=== PATIENT | female | born 1970 | race Caucasian/White ===

== ENCOUNTER → 2017-01-19 | Outpatient (CLI) | payer BC ==
--- NOTE | 2017-01-20 12:10 | MAMMOGRAPHY REPORT ---
BILATERAL DIGITAL SCREENING MAMMOGRAM TOMOSYNTHESIS WITH CAD: 01/19/2017 CLINICAL HISTORY: Routine screening. Patient has no complaints. TECHNIQUE: Breast tomosynthesis in addition to standard 2D mammography was performed. Current study was also evaluated with a Computer Aided Detection (CAD) system. COMPARISON: Comparison is made to exam dated: 10/29/2009 mammogram - [facility]. BREAST COMPOSITION: The tissue of both breasts is heterogeneously dense, which may obscure small mas ses. FINDINGS: There are diffuse faint punctate microcalcifications scattered bilaterally. Multiple bilat eral circumscribed subcentimeter oval and round masses are scattered in the breasts, which is a typic ally benign mammographic pattern. No suspicious mass, architectural distortion or cluster of suspici ous microcalcifications is seen. IMPRESSION: ACR BI-RADS CATEGORY 1: NEGATIVE There is no mammographic evidence of malignancy. A 1 year screening mammogram is recommended. The pa tient will receive written notification of the results. Approximately 10% of breast cancers are not detected with mammography. A negative mammographic report should not delay biopsy if a clinically suggestive mass is present. Martha Anderson M.D. ay/:01/19/2017 15:47:10 Course Instructor: Teresa WINN(Felecia)(Diana), [facility] letter sent: Normal 1/2 BI-RADS Code: ACR BI-RADS Category 1: Negative
== END | disposition home or self-care (01) ==
LOC: C.MAMM 12:06
PROVIDERS: ATTEND Obstetrics & Gynecology
DX: Z12.31 Encounter for screening mammogram for malignant neoplasm of breast (principal)

== ENCOUNTER 2017-05-13 09:08 | Inpatient (IN) | payer BC ==
--- NOTE | 2017-04-26 10:19 | HISTORY & PHYSICAL EXAMINATION ---
DATE OF ADMISSION: 05/13/2017 CHIEF COMPLAINT: Heavy vaginal bleeding, pelvic and lower back pain. HISTORY OF PRESENT ILLNESS: The patient is a 46-year-old 1, para 1. She has had D&C diagnostic lap and a in 2004. She has had heavy vaginal bleeding and pelvic pain for over 1 year, has been getting progressively worse. She is having her period about once a month, they last for up to 10 days, soaking a pad an hour for several hours. She has to miss work about 2 or 3 days each cycle because she is bleeding so heavy. Recently had an ultrasound which showed three 5 cm fibroids and she is presently being scheduled for a myomectomy with preservation of the uterus and tubes. She has also been told that occasionally due to heavy bleeding, she might end up with a hysterectomy. PAST MEDICAL HISTORY: She has a girl 12 years old in good health. ALLERGIES: No known drug allergies. SURGICAL HISTORY: She has had a D&C. She has had a . She has got a history of occasional migraine. SOCIAL HISTORY: No smoking. No excessive alcohol intake. Works for [employer]. FAMILY HISTORY: Mom is in her 70s. Her father at age 26. She has 1 sister in good health. REVIEW OF SYSTEMS: She has occasional migraines. No symptoms of frequent or severe bladder infections. PHYSICAL EXAMINATION: GENERAL: Well-developed, well-nourished 46-year-old white female, alert, oriented x3 and cooperative, in no acute distress, appears her stated age. EYES: Conjunctivae are pink. Sclerae white. No evidence of jaundice. EARS: Normal light reflex bilaterally. NOSE: Normal mucosa. Septum is midline. There are no polyps. THROAT: No erythema or evidence of infection. Teeth are in good state of repair. HEAD: Normocephalic, normal distribution of hair. NECK: Supple. Trachea midline. Thyroid is not enlarged. There is no adenopathy appreciated. Both carotids are of good intensity. CHEST: Clear to auscultation and percussion. No wheezes, rales or rhonchi appreciated. HEART: Regular rhythm. S1 and S2 normal. BREASTS: Normal. ABDOMEN: Soft and nontender. There is a well-healed Pfannenstiel scar. PELVIC: An enlarged uterus to about 11-12 weeks' gestational size, irregular. MUSCULOSKELETAL: No calf tenderness. IMPRESSIONS OF THIS CASE: Status post dilation and curettage diagnostic lap, status post , and symptomatic uterine fibroids.
[2017-04-26 10:29] VITALS: BMI 32.0
--- NOTE | 2017-04-26 11:05 | PAT Medication Instructions ---
Service Date Apr 26, 2017. Current Home Medication List Acetaminophen (Tylenol), 650 MG PO PRN Escitalopram (Lexapro), 10 MG PO NOON Ibuprofen (Advil), 400 MG PO PRN Loratadine (Claritin), 10 MG PO PRN [Vitamin B12], 1 TAB PO DAILY [Vitamin D], 1 TAB PO DAILY Medication Instructions For Your Scheduled Surgery Escitalopram (Lexapro), 10 MG PO NOON (continue per surgeon) - Check with surgeon for instructions: Ibuprofen (Advil), 400 MG PO PRN - Hold the following medications the morning of surgery: Loratadine (Claritin), 10 MG PO PRN [Vitamin B12], 1 TAB PO DAILY [Vitamin D], 1 TAB PO DAILY - Take the following medications the morning of surgery with a sip of water: Acetaminophen (Tylenol), 650 MG PO PRN (okay to take up to 4 hours prior to surgery if needed) - Take the following medications as scheduled the night before surgery: Loratadine (Claritin), 10 MG PO PRN (if needed) Acetaminophen (Tylenol), 650 MG PO PRN (if needed) If you have any questions please call us at [phone] or [phone] or [phone]
[2017-04-26 11:42] LABS: BASO % 0.5 %; BASO ABS # 0.03 K/uL (0-0.2); COMPLETE YES; EOS % 3.1 %; HEMATOCRIT 38.9 % (37-47); IG% 0.9 %; LYMPH % 23.7 %; LYMPH ABS # 1.52 K/uL (1.2-3.4); MEAN CELL VOLUME 88.4 fL (80-100); MEAN CORPUSCULAR HEMOGLOBIN 29.3 pg (25-34); MEAN CORPUSCULAR HGB CONC 33.2 g/dl (32-36); MEAN PLATELET VOLUME 10.1 fL (7.4-10.4); NEUT % 62.8 %; PLATELET COUNT 305 K/uL (130-400); WHITE BLOOD COUNT 6.42 K/uL (4.8-10.8)
[2017-04-26 11:54] LABS: INR 0.9 (0.9-1.1)
[2017-04-26 13:48] LABS: BUN/CREATININE RATIO 25.5 (10-20); CALCIUM 8.8 mg/dl (8.5-10.1); CREATININE 0.83 mg/dl (0.60-1.20); POTASSIUM 4.3 mmol/L (3.5-5.1)
[~2017-05-13] VITALS: Ht 160 cm; Wt 82.1 kg
[2017-05-13] VITALS (10 sets, daily range): BP systolic 109–147; BP diastolic 77–98; PULSE 68–106; TEMP 36.5–37.1; O2SAT 95–98; Ht 160 cm; Wt 82.1 kg
[~2017-05-13 09:08] MED LIST: ACET-1311 PO; CEFOXITIN IV 2,000 MG in DEXTROSE 5% 50ML 50 ML IV SCH; CLR10 PO; ESCI10TA17 PO; IBUP-1050 PO; LACTATED RINGER'S 1000ML 1,000 ML IV SCH; VITAMIN B12 PO; VITAMIN D PO
[2017-05-13] MEDS ORDERED: FERR1TAB13 PO (09:41)
[2017-05-13] MEDS ORDERED: FENTANYL CITRATE INJ 50 MCG/1 ML 2 ML VIAL ONE ×3 (09:49→16:05)
[2017-05-13] MEDS ORDERED: MIDAZOLAM HCL 1 MG/ML 2ML VIAL ONE (09:49)
[2017-05-13] MEDS ORDERED: NURSING VERBAL MED ORDER ONE (10:00)
[2017-05-13] MEDS ORDERED: MORPHINE SULFATE PF 2MG/2ML SYR ONE (10:59)
[2017-05-13] MEDS ORDERED: BUPIVACAINE 0.25% 30 ML VIAL ONE (11:35)
[2017-05-13] MEDS ORDERED: HEPARIN SOD (PORCINE) 1000 UNIT/ML 10 ML VIAL ONE (11:44)
--- NOTE | 2017-05-13 11:45 | History & Physical Bridge Note ---
H&P Re-Evaluation Bridge Note: I have examined the patient, reviewed the History & Physical and in the interval since the performance of the History & Physical I have noted the following changes of clinical significance: No changes noted
[2017-05-13] MEDS ORDERED: NALOXONE HCL INJ 0.08 MG in SYRINGE 1.8 ML IV PRN (12:32)
[2017-05-13] MEDS ORDERED: SODIUM CHLORIDE 0.9% 1000ML 1,000 ML IV PRN (12:32)
[2017-05-13] MEDS ORDERED: NALOXONE HCL INJ 1 MG in SODIUM CHLORIDE 0.9% 1000ML 1,000 ML IV PRN ×4 (12:32)
[2017-05-13] MEDS ORDERED: LACTATED RINGER'S 1000ML 500 ML IV PRN (12:32)
[2017-05-13] MEDS ORDERED: NEOSTIGMINE METHYLSULFATE 5 MG/5 ML SYR ONE (12:36)
[2017-05-13] MEDS ORDERED: DEXAMETHASONE SOD INJ 4 MG/ML VIAL ONE (12:36)
[2017-05-13] MEDS ORDERED: SUCCINYLCHOLINE CHLORIDE 20 MG/ML 10 ML VIAL IV ONE (12:36)
[2017-05-13] MEDS ORDERED: PROPOFOL IV EMULSION 10 MG/ML 20 ML VIAL IV ONE (12:36)
[2017-05-13] MEDS ORDERED: ONDANSETRON INJ 2 MG/ML 2 ML VIAL ONE (12:36)
[2017-05-13] MEDS ORDERED: LIDOCAINE HCL 2% 2 ML VIAL (20MG/ML) ONE (12:36)
[2017-05-13] MEDS ORDERED: GLYCOPYRROLATE INJ 0.2 MG/ML VIAL ONE (12:36)
[2017-05-13] MEDS ORDERED: ROCURONIUM BROMIDE 10 MG/ML 5 ML VIAL IV ONE (12:36)
[2017-05-13] MEDS ORDERED: EpHEDrine SULFATE INJ 50 MG/ML AMP ONE (12:41)
[2017-05-13] MEDS ORDERED: EpHEDrine SULFATE INJ 50 MG/ML AMP IV PRN ×2 (12:45→16:00)
[2017-05-13] MEDS ORDERED: NALBUPHINE HCL INJ 10 MG/ML AMP IV PRN (12:45)
[2017-05-13] MEDS ORDERED: ONDANSETRON INJ 2 MG/ML 2 ML VIAL IV PRN ×2 (12:45→16:00)
[2017-05-13] MEDS ORDERED: MoRPHine SULFATE PF 1 MG/ML 10 ML AMP/VIAL EPI PRN (12:45)
[2017-05-13] MEDS ORDERED: NO NARCOTICS OR SEDATIVES SCH (12:45)
[2017-05-13] MEDS ORDERED: DiphenhydrAMINE HCL 50 MG/ML VIAL IV PRN (12:45)
[2017-05-13] MEDS ORDERED: NALOXONE HCL 0.4 MG/1 ML VIAL/CARP IV PRN (12:45)
[2017-05-13] MEDS ORDERED: PROMETHAZINE HCL INJ 25 MG in SODIUM CHLORIDE 0.9% 50ML 50 ML IV PRN (12:45)
[2017-05-13] MEDS ORDERED: LIDOCAINE/EPINEPHRINE 1% 20 ML VIAL ONE ×2 (12:46→13:24)
[2017-05-13] MEDS ORDERED: LABETALOL HCL IV 5 MG/ML 20ML IV ONE (13:05)
[2017-05-13] MEDS ORDERED: SEPRAFILM ADHESION BARR (4) 3X2.5IN TOP ONE (14:19)
[2017-05-13] MEDS ORDERED: SENNA 8.6 MG TAB PO PRN (15:00)
[2017-05-13] MEDS ORDERED: MAGNESIUM HYDROXIDE SUSP 30 ML UDC PO PRN (15:00)
[2017-05-13] MEDS ORDERED: BISACODYL 10 MG SUPP PR PRN (15:00)
--- NOTE | 2017-05-13 15:05 | [facility] Post Operative Brief Note ---
Immediate Operative Summary Operative Date May 13, 2017. Pre-Operative Diagnosis Symptomatic uterine fibroids, heavy vaginal bleeding, pelvic and lower back pain Post-Operative Diagnosis Symptomatic uterine fibroids, heavy vaginal bleeding, pelvic and lower back pain Procedure(s) Performed Abdominal Myomectomy Surgeon Dr. Teofilo Ross Jewelry Department Supervisor Surgeon(s) Dr. Keyshawn Chairez Estimated Blood Loss 150 mL Findings 14 uterine fibroids Specimens Permanent specimens A: Uterine fibroids x14 Complication(s) None Disposition Recovery Room / PACU
--- NOTE | 2017-05-13 15:26 | OPERATIVE REPORT ---
DATE OF OPERATION: 05/13/2017 INDICATIONS FOR SURGERY: Fibroid uterus and heavy bleeding. PREOPERATIVE DIAGNOSIS: Symptomatic fibroid uterus. POSTOPERATIVE DIAGNOSIS: Left adnexal adhesions and multiple fibroids. PROCEDURE: Myomectomy x14. SURGEON: Dr. Ross. CD REACTOR OPERATOR HEAD: Dr. Chairez. ESTIMATED BLOOD LOSS: 150 mL. ANESTHESIA: General. OPERATIVE FINDINGS AND PROCEDURE: The patient was brought to the OR table and correctly identified by armband and conversation. General anesthesia was administered. Perineum and vagina were painted with Betadine. Lower abdomen was painted with an alcohol based sterilizing solution. Beauchamp catheter was inserted into the bladder. Compression stockings were applied. A Pfannenstiel incision was made through a previous scar. Incision was carried down to the anterior fascia by sharp dissection. Hemostasis was secured by electrocauterization. Fascia was incised transversely, from underlying muscle by blunt and sharp dissection. Recti muscles were in the midline, exposing the peritoneum, which was carefully raised and entered. An O'Estiven-O'Vásquez self-retaining retractor was inserted into the incision. There were some adnexal adhesions, which prevented visualization on the left side and these were taken down carefully with Blair scissors. Following this, 4 laparotomy pads were placed into the abdomen to retract the intestines and the O'Estiven-O'Vásquez self-retaining retractor was spread as wide as possible. What could be seen was uterus of about 14 weeks' gestational size with multiple fibroids, about 3 more over 4-5 cm. We started by entering the anterior portion of the uterus and removing a fibroid that was about 5 cm. We then went posterior and removed another one. We made a separate incision posteriorly that was about 4 cm, closed it with [id number] sutures of Vicryl and then about a 2 cm one right outside the uterus in the broad ligament on the patient's right side. We went back anteriorly. There was a deep fibroid on the patient's left side and this had to be removed and in the process of removing this, we got into the endometrial cavity. In total, we ended up removing 14 fibroids, about 3 or more about 5 cm and 1 was about 4 and the other ones were smaller. We did a layer closure with interrupted Vicryl until we obtained good hemostasis. We then washed out the pelvic cavity, checked to make sure the bleeding was well controlled, covered the suture lines with Seprafilm and then did a careful anatomical approximation of the anterior abdominal wall. Peritoneum was closed with continuous suture of chromic catgut. Recti muscles were approximated with interrupted [id number] suture of chromic catgut. The fascia was closed with continuous interlocking suture of Vicryl on each side and tied in the midline. SubQ was approximated with plain and skin edges were approximated with staple clips. I attest to the content of the Intraoperative Record and any orders documented therein. Any exception s are noted below.
[2017-05-13] MEDS: KETOROLAC TROMETHAMINE 30 MG/ML VIAL IV. PRN (15:36)
[2017-05-13] MEDS ORDERED: ACETAMINOPHEN 1000 MG/100 ML IV IV ONE (15:57)
[2017-05-13] MEDS ORDERED: FENTANYL CITRATE INJ 50 MCG/1 ML 2 ML VIAL IV PRN (16:00)
[2017-05-13] MEDS ORDERED: ACETAMINOPHEN 1000 MG/100 ML IV IV SCH (16:00)
[2017-05-13] MEDS ORDERED: ATROPINE SULFATE 0.1 MG/ML 5ML SYR IV PRN (16:00)
--- NOTE | 2017-05-13 16:55 | Anesthesiology Progress Note ---
Anesthesia Post Op Note Date & Time May 13, 2017 at 16:54 Vital Signs Pain Intensity: 4 Vital Signs Past 12 Hours Date Time Temp Pulse Resp B/P (MAP) Pulse Ox O2 Delivery O2 Flow Rate FiO2 05/13/17 16:40 37.2 93 16 126/85 96 Nasal Cannula 2 05/13/17 16:30 37.4 89 16 109/76 97 Nasal Cannula 2 05/13/17 16:20 37.4 93 16 116/82 97 Nasal Cannula 2 05/13/17 16:10 94 16 125/76 96 Nasal Cannula 2 05/13/17 16:00 86 16 132/82 97 Nasal Cannula 2 05/13/17 15:50 84 16 142/86 96 Nasal Cannula 2 05/13/17 15:40 85 16 129/88 93 Nasal Cannula 2 05/13/17 15:30 82 16 147/109 97 Oxymask 10 05/13/17 15:25 87 16 161/98 97 Oxymask 10 05/13/17 15:20 82 16 173/109 95 Oxymask 10 05/13/17 15:10 78 16 155/99 95 Oxymask 10 05/13/17 15:04 36.7 83 16 159/109 95 Oxymask 10 05/13/17 09:44 37.1 68 18 147/98 98 Room Air Notes Mental Status: alert / awake / arousable, participated in evaluation Pt Amnestic to Procedure: Yes Nausea / Vomiting: adequately controlled Pain: adequately controlled Airway Patency, RR, SpO2: stable & adequate BP & HR: stable & adequate Hydration State: stable & adequate Anesthetic Complications: no major complications apparent
[2017-05-13] MEDS ORDERED: HYDROmorphone INJ 0.5 MG/0.5 ML SYR IV STA (18:50)
[2017-05-13] MEDS: D5W AND LACTATED RINGERS 1,000 ML IV SCH (23:29)
[2017-05-14] VITALS (17 sets, daily range): BP systolic 100–136; BP diastolic 66–89; PULSE 93–98; TEMP 36.7–37.6; O2SAT 86–97
[2017-05-14] MEDS: KETOROLAC TROMETHAMINE 30 MG/ML VIAL IV. PRN (04:32)
[2017-05-14] MEDS ORDERED: DC INTRASPINAL MORPHINE SCH (07:00)
[2017-05-14] MEDS ORDERED: KETOROLAC TROMETHAMINE 30 MG/ML VIAL IV. PRN (07:01)
[2017-05-14] MEDS ORDERED: ONDANSETRON INJ 2 MG/ML 2 ML VIAL IV PRN (07:01)
[2017-05-14] MEDS ORDERED: MEPERIDINE HCL 50 MG/ML CARP IV PRN (07:01)
[2017-05-14] MEDS: MEPERIDINE HCL 50 MG/ML CARP IV PRN ×2 (07:23→17:09)
[2017-05-14 08:02] LABS: BASO % 0.1 %; BASO ABS # 0.01 K/uL (0-0.2); COMPLETE YES; HEMATOCRIT 34.2 % (37-47); IG% 0.3 %; LYMPH % 9.9 %; LYMPH ABS # 1.19 K/uL (1.2-3.4); MEAN CELL VOLUME 91.2 fL (80-100); MEAN CORPUSCULAR HEMOGLOBIN 28.8 pg (25-34); MEAN CORPUSCULAR HGB CONC 31.6 g/dl (32-36); MEAN PLATELET VOLUME 10.2 fL (7.4-10.4); MONO % 9.9 %; NEUT % 79.8 %; PLATELET COUNT 251 K/uL (130-400); RED BLOOD COUNT 3.75 M/uL (4.2-5.4); WHITE BLOOD COUNT 11.97 K/uL (4.8-10.8)
--- NOTE | 2017-05-14 10:13 | Progress Note ---
Subjective May 14, 2017. Subjective conversation w/ patient Ambulation: ambulating normally Voiding: no voiding problems Passing Gas: No Diet Tolerance: Clear Liquids Lochia: Small Review of Systems Constitutional: + fever Objective Vital Signs Date Time Temp Pulse Resp B/P (MAP) Pulse Ox O2 Delivery O2 Flow Rate FiO2 05/14/17 07:25 36.7 94 16 111/73 (86) 94 Room Air 05/14/17 07:25 94 Room Air 05/14/17 07:00 16 94 05/14/17 06:30 18 94 05/14/17 05:30 18 97 05/14/17 04:30 18 94 05/14/17 03:30 18 93 05/14/17 03:30 36.7 98 18 124/71 (88) 93 Room Air 05/14/17 02:30 18 95 05/14/17 02:30 18 95 Room Air 05/14/17 01:30 18 97 05/14/17 00:30 18 96 05/13/17 23:35 18 97 05/13/17 23:35 37.1 90 18 116/80 (92) 97 Nasal Cannula 1.0 05/13/17 23:35 97 Nasal Cannula 1.0 05/13/17 22:30 16 95 05/13/17 22:00 16 95 05/13/17 21:00 16 97 05/13/17 20:00 36.7 98 16 109/77 (88) 98 Nasal Cannula 2.0 05/13/17 20:00 16 98 05/13/17 19:00 18 97 05/13/17 19:00 106 18 124/80 (95) 97 Nasal Cannula 2.0 05/13/17 18:00 20 97 05/13/17 18:00 36.7 97 20 125/81 (96) 97 Nasal Cannula 2.0 05/13/17 17:30 88 16 116/79 (91) 97 Room Air 2.0 05/13/17 17:00 97 Nasal Cannula 2.0 05/13/17 17:00 36.5 84 18 129/78 (95) 97 Nasal Cannula 2.0 05/13/17 17:00 18 97 05/13/17 16:40 37.2 93 16 126/85 96 Nasal Cannula 2 05/13/17 16:30 37.4 89 16 109/76 97 Nasal Cannula 2 05/13/17 16:20 37.4 93 16 116/82 97 Nasal Cannula 2 05/13/17 16:10 94 16 125/76 96 Nasal Cannula 2 05/13/17 16:00 86 16 132/82 97 Nasal Cannula 2 05/13/17 15:50 84 16 142/86 96 Nasal Cannula 2 05/13/17 15:40 85 16 129/88 93 Nasal Cannula 2 05/13/17 15:30 82 16 147/109 97 Oxymask 10 05/13/17 15:25 87 16 161/98 97 Oxymask 10 05/13/17 15:20 82 16 173/109 95 Oxymask 10 05/13/17 15:10 78 16 155/99 95 Oxymask 10 05/13/17 15:04 36.7 83 16 159/109 95 Oxymask 10 Physical Exam General Appearance: WELL-APPEARING Respiratory/Chest: lungs clear Abdomen: + abnormal bowel sounds Incision Description: Clean, Dry & Intact Extremities: no pedal edema, no calf tenderness Laboratory Results Last 24 Hours Test 05/14/17 07:45 White Blood Count 11.97 K/uL Red Blood Count 3.75 M/uL Hemoglobin 10.8 g/dL Hematocrit 34.2 % Mean Corpuscular Volume 91.2 fL Mean Corpuscular Hemoglobin 28.8 pg Mean Corpuscular Hemoglobin Concent 31.6 g/dl Platelet Count 251 K/uL Mean Platelet Volume 10.2 fL Neutrophils (%) (Auto) 79.8 % Lymphocytes (%) (Auto) 9.9 % Monocytes (%) (Auto) 9.9 % Eosinophils (%) (Auto) 0.0 % Basophils (%) (Auto) 0.1 % Neutrophils # (Auto) 9.55 K/uL Lymphocytes # (Auto) 1.19 K/uL Monocytes # (Auto) 1.19 K/uL Eosinophils # (Auto) 0.00 K/uL Basophils # (Auto) 0.01 K/uL RDW Standard Deviation 46.5 fL RDW Coefficient of Variation 13.9 % Immature Granulocyte % (Auto) 0.3 % Immature Granulocyte # (Auto) 0.03 K/uL Assessment and Plan Post-Op Day#: 1 Continue Routine Care: hypoactive bowel sounds
[2017-05-14] MEDS ORDERED: LACTATED RINGER'S 1000ML 500 ML IV SCH (17:00)
[2017-05-14] MEDS ORDERED: NURSING VERBAL MED ORDER ONE (17:00)
[2017-05-14] MEDS: D5W AND LACTATED RINGERS 1,000 ML IV SCH (17:01)
[2017-05-14] MEDS: IBUPROFEN 600 MG TAB PO PRN (21:07)
[2017-05-14] MEDS: OXYCODONE/ACETAMINOPHEN 5-325 TAB PO PRN ×2 (21:08→22:08)
[2017-05-15] VITALS (11 sets, daily range): BP systolic 130–152; BP diastolic 86–98; PULSE 79–89; TEMP 36.5–37.1; O2SAT 88–94
[2017-05-15] MEDS: D5W AND LACTATED RINGERS 1,000 ML IV SCH (01:45)
[2017-05-15 07:28] LABS: BASO % 0.2 %; BASO ABS # 0.02 K/uL (0-0.2); COMPLETE YES; EOS % 0.2 %; HEMATOCRIT 31.7 % (37-47); IG% 0.4 %; LYMPH % 8.7 %; LYMPH ABS # 1.06 K/uL (1.2-3.4); MEAN CELL VOLUME 92.7 fL (80-100); MEAN CORPUSCULAR HEMOGLOBIN 29.5 pg (25-34); MEAN CORPUSCULAR HGB CONC 31.9 g/dl (32-36); MEAN PLATELET VOLUME 10.4 fL (7.4-10.4); MONO % 8.3 %; NEUT % 82.2 %; PLATELET COUNT 197 K/uL (130-400); RED BLOOD COUNT 3.42 M/uL (4.2-5.4); WHITE BLOOD COUNT 12.14 K/uL (4.8-10.8)
[2017-05-15] MEDS: OXYCODONE/ACETAMINOPHEN 5-325 TAB PO PRN ×5 (07:33→23:18)
[2017-05-15] MEDS: IBUPROFEN 600 MG TAB PO PRN ×5 (07:33→23:18)
--- NOTE | 2017-05-15 10:24 | Progress Note ---
Subjective May 15, 2017. Subjective conversation w/ patient Ambulation: limited ambulation Voiding: no voiding problems Passing Gas: Yes Diet Tolerance: Regular Diet Lochia: Small Review of Systems Constitutional: + fever Objective Vital Signs Date Time Temp Pulse Resp B/P (MAP) Pulse Ox O2 Delivery O2 Flow Rate FiO2 05/15/17 07:40 94 Nasal Cannula 1.0 05/15/17 07:40 37.1 79 18 135/88 (104) 94 Nasal Cannula 1.0 05/15/17 04:30 36.9 89 18 135/86 (102) 94 Nasal Cannula 1.0 05/14/17 23:30 93 Nasal Cannula 2.0 05/14/17 23:30 36.9 93 18 136/89 (105) 93 Nasal Cannula 2.0 05/14/17 22:50 91 Nasal Cannula 2.0 05/14/17 22:50 37.1 86 Room Air 05/14/17 21:10 86 Room Air 05/14/17 21:10 91 Nasal Cannula 2.0 05/14/17 18:30 37.0 94 18 118/79 (92) 95 Nasal Cannula 2.0 05/14/17 17:10 95 Nasal Cannula 2.0 05/14/17 16:10 91 Nasal Cannula 2.0 05/14/17 15:55 37.6 97 18 109/73 (85) 88 Room Air 05/14/17 15:55 88 Room Air 05/14/17 12:10 37.0 93 18 100/66 (77) 92 Room Air Physical Exam General Appearance: mild distress Respiratory/Chest: lungs clear Abdomen: normal bowel sounds, non tender Incision Description: Clean, Dry & Intact Extremities: normal inspection, no pedal edema Laboratory Results Last 24 Hours Test 05/15/17 06:59 White Blood Count 12.14 K/uL Red Blood Count 3.42 M/uL Hemoglobin 10.1 g/dL Hematocrit 31.7 % Mean Corpuscular Volume 92.7 fL Mean Corpuscular Hemoglobin 29.5 pg Mean Corpuscular Hemoglobin Concent 31.9 g/dl Platelet Count 197 K/uL Mean Platelet Volume 10.4 fL Neutrophils (%) (Auto) 82.2 % Lymphocytes (%) (Auto) 8.7 % Monocytes (%) (Auto) 8.3 % Eosinophils (%) (Auto) 0.2 % Basophils (%) (Auto) 0.2 % Neutrophils # (Auto) 9.98 K/uL Lymphocytes # (Auto) 1.06 K/uL Monocytes # (Auto) 1.01 K/uL Eosinophils # (Auto) 0.02 K/uL Basophils # (Auto) 0.02 K/uL RDW Standard Deviation 47.0 fL RDW Coefficient of Variation 13.9 % Immature Granulocyte % (Auto) 0.4 % Immature Granulocyte # (Auto) 0.05 K/uL Assessment and Plan Post-Op Day#: 2 Continue Routine Care: patient has decreased oxygen saturation at night possible sleep apnea
[2017-05-15] MEDS ORDERED: NURSING VERBAL MED ORDER ONE (11:00)
--- NOTE | 2017-05-15 13:03 | Medical Consult ---
Consultation Date of Consultation: May 15, 2017. Attending Physician: Teofilo Ross M.D. Reason for Consultation: Possible sleep apnea History of Present Illness This is a 47 y/o female with a history of PTSD, allergies and mild sleep apnea who presents s/p abdominal myomectomy with Dr. Ross on 05/13 for medical management of possible sleep apnea. The patient has been desaturating to 86-88 % on room air overnight, requiring supplemental O2. She denies actually feeling short of breath or increased daytime fatigue. She denies any trouble sleeping or PND. She states that she did have a sleep study last year which showed mild sleep apnea, and that she did not require treatment for it at that time. She does admit to gaining weight since that study, which could be causing worsening of her baseline sleep apnea. I discussed with her repeating a sleep study as an outpatient to see if she now requires CPAP. The patient was up ambulating earlier and denied any dyspnea on exertion or lightheadedness. The patient denies fevers, chills, sweats, chest pain, palpitations, claudication, cough, wheezing, shortness of breath, nausea, vomiting, abdominal pain, dysuria, hematuria, urinary retention, paralysis, weakness, numbness and tingling. Past Medical/Surgical History PTSD Allergies Sleep apnea Family History Cancer (throat, uterine) Stroke Social History Smoking Status: Never Smoker Smokeless Tobacco Use: No Alcohol Use: occasionally (wine) Drug Use: none Marital Status: Housing Status: lives with family Occupation Status: employed Allergies Coded Allergies: NO KNOWN DRUG ALLERGIES (Verified Allergy, Unknown, NONE, 05/13/17) Nickel (Verified Allergy, Unknown, RASH WITH INEXPENSIVE JEWELRY, 05/13/17 ) Current Inpatient Medications Current Inpatient Medications Medications (Trade) Dose Ordered Sig/Teofilo Route Start Time Stop Time Status Last Admin Dose Admin Ketorolac Tromethamine (Toradol Inj) 30 mg Q6H PRN IV. 05/14/17 07:01 05/19/17 07:00 05/14/17 12:12 30 MG Meperidine HCl (Demerol Inj) 50 mg Q4H PRN IV 05/14/17 07:01 05/28/17 07:00 05/14/17 17:09 50 MG Meperidine HCl (Demerol Inj) 75 mg Q4H PRN IV 05/14/17 07:01 05/28/17 07:00 Oxycodone/ Acetaminophen (Percocet 5-325mg Tab) 1 tab for pain scale 1-5 2 t... Q4H PRN PO 05/14/17 07:01 05/28/17 07:00 05/15/17 11:35 1 TAB Ibuprofen (Motrin Tab) 600 mg Q4H PRN PO 05/13/17 15:00 06/12/17 14:59 05/15/17 11:35 600 MG Ondansetron HCl (Zofran Inj) 4 mg Q4H PRN IV 05/14/17 07:01 06/13/17 07:00 Bisacodyl (Dulcolax Supp) 10 mg DAILY PRN [place] 05/13/17 15:00 06/12/17 14:59 Magnesium Hydroxide (Milk Of Magnesia Susp) 30 ml HS PRN PO 05/13/17 15:00 06/12/17 14:59 Senna (Senokot Tab) 17.2 mg HS PRN PO 05/13/17 15:00 06/12/17 14:59 Review of Systems See HPI for pertinent positives and negatives. All other systems reviewed and negative. Physical Exam Date Time Temp Pulse Resp B/P (MAP) Pulse Ox O2 Delivery O2 Flow Rate FiO2 05/15/17 11:35 36.5 80 22 141/93 (109) 94 Nasal Cannula 1.5 05/15/17 11:01 93 Nasal Cannula 1.5 05/15/17 11:00 90 Nasal Cannula 1.0 05/15/17 07:40 94 Nasal Cannula 1.0 05/15/17 07:40 37.1 79 18 135/88 (104) 94 Nasal Cannula 1.0 05/15/17 04:30 36.9 89 18 135/86 (102) 94 Nasal Cannula 1.0 05/14/17 23:30 93 Nasal Cannula 2.0 05/14/17 23:30 36.9 93 18 136/89 (105) 93 Nasal Cannula 2.0 05/14/17 22:50 91 Nasal Cannula 2.0 05/14/17 22:50 37.1 86 Room Air 05/14/17 21:10 86 Room Air 05/14/17 21:10 91 Nasal Cannula 2.0 05/14/17 18:30 37.0 94 18 118/79 (92) 95 Nasal Cannula 2.0 05/14/17 17:10 95 Nasal Cannula 2.0 05/14/17 16:10 91 Nasal Cannula 2.0 05/14/17 15:55 37.6 97 18 109/73 (85) 88 Room Air 05/14/17 15:55 88 Room Air General appearance: +Obese. Well-developed, well-nourished, no apparent distress Head: Normocephalic, atraumatic Eyes: Normal inspection, PERRL, EOMI ENT: Normal ENT inspection, hearing grossly normal, pharynx normal Neck: Supple, no JVD, trachea midline Respiratory/Chest: +Currently 94% on 1.5L NC. Lungs clear to auscultation, normal breath sounds, no respiratory distress Cardiovascular: Regular rate & rhythm, no gallop, no murmur Abdomen/GI: +Lower abdominal incision closed with suleman. Lower abdomen TTP. Normal bowel sounds, soft Extremities/Musculoskeletal: Normal inspection, no calf tenderness, no pedal edema Neurological/Psych: Alert, normal mood/affect, oriented x 3 Skin: Normal color, warm/dry, no rash Laboratory Results Last 24 Hours Test 05/15/17 06:59 White Blood Count 12.14 K/uL Red Blood Count 3.42 M/uL Hemoglobin 10.1 g/dL Hematocrit 31.7 % Mean Corpuscular Volume 92.7 fL Mean Corpuscular Hemoglobin 29.5 pg Mean Corpuscular Hemoglobin Concent 31.9 g/dl Platelet Count 197 K/uL Mean Platelet Volume 10.4 fL Neutrophils (%) (Auto) 82.2 % Lymphocytes (%) (Auto) 8.7 % Monocytes (%) (Auto) 8.3 % Eosinophils (%) (Auto) 0.2 % Basophils (%) (Auto) 0.2 % Neutrophils # (Auto) 9.98 K/uL Lymphocytes # (Auto) 1.06 K/uL Monocytes # (Auto) 1.01 K/uL Eosinophils # (Auto) 0.02 K/uL Basophils # (Auto) 0.02 K/uL RDW Standard Deviation 47.0 fL RDW Coefficient of Variation 13.9 % Immature Granulocyte % (Auto) 0.4 % Immature Granulocyte # (Auto) 0.05 K/uL Assessment & Plan 47 y/o female with a history of PTSD, allergies and mild sleep apnea who presents s/p abdominal myomectomy with Dr. Ross on 05/13 for medical management of possible sleep apnea. S/p abdominal myomectomy--POD #2 -Pain management, DVT prophylaxis, and PT/OT as per primary team Obstructive sleep apnea, nighttime hypoxia--h/o mild disease that did not previously require treatment -Pt would need updated sleep study to approve outpatient CPAP -Consult case management for assistance and to establish her with a PCP again -Continue O2 by protocol Mild leukocytosis, likely secondary to intraoperative steroids -Continue to monitor, no s/s infection Acute blood loss anemia in postop setting--stable -Hgb stable, continue to monitor -Restarted home ferrous sulfate PTSD -Continue home Lexapro 10 mg PO qd Thank you for this consultation. We will continue to follow.
[2017-05-15] MEDS ORDERED: FERROUS SULFATE 325 MG TAB PO ONE (13:30)
[2017-05-15] MEDS ORDERED: ESCITALOPRAM OXALATE 10 MG TAB PO ONE (13:30)
[2017-05-15 13:56] LABS: BUN/CREATININE RATIO 17.7 (10-20); CALCIUM 8.7 mg/dl (8.5-10.1); CREATININE 0.86 mg/dl (0.60-1.20); POTASSIUM 4.2 mmol/L (3.5-5.1)
[2017-05-16] VITALS (12 sets, daily range): BP systolic 135–168; BP diastolic 85–101; PULSE 73–85; TEMP 36.6–37.8; O2SAT 92–96
[2017-05-16] MEDS: IBUPROFEN 600 MG TAB PO PRN ×3 (03:31→17:14)
[2017-05-16] MEDS: OXYCODONE/ACETAMINOPHEN 5-325 TAB PO PRN ×3 (03:31→20:38)
[2017-05-16 05:42] LABS: HEMATOCRIT 32.6 % (37-47); MEAN CELL VOLUME 91.8 fL (80-100); MEAN CORPUSCULAR HEMOGLOBIN 28.7 pg (25-34); MEAN CORPUSCULAR HGB CONC 31.3 g/dl (32-36); MEAN PLATELET VOLUME 10.1 fL (7.4-10.4); PLATELET COUNT 218 K/uL (130-400); RED BLOOD COUNT 3.55 M/uL (4.2-5.4); WHITE BLOOD COUNT 11.19 K/uL (4.8-10.8)
[2017-05-16 06:17] LABS: CALCIUM 8.6 mg/dl (8.5-10.1); CREATININE 0.76 mg/dl (0.60-1.20)
[2017-05-16] MEDS: FERROUS SULFATE 325 MG TAB PO SCH (08:50)
--- NOTE | 2017-05-16 08:53 | Progress Note ---
Subjective May 16, 2017. Subjective conversation w/ patient Ambulation: limited ambulation Voiding: no voiding problems Passing Gas: Yes Diet Tolerance: Regular Diet Lochia: Small Review of Systems Constitutional: + fever Objective Vital Signs Date Time Temp Pulse Resp B/P (MAP) Pulse Ox O2 Delivery O2 Flow Rate FiO2 05/16/17 07:55 37.0 73 18 148/94 (112) 95 Nasal Cannula 2.0 05/16/17 03:45 37.1 80 20 139/85 (103) 92 Room Air 1.5 05/16/17 00:15 37.1 05/16/17 00:00 92 Nasal Cannula 1.5 05/16/17 00:00 37.8 85 18 135/95 (108) 92 Nasal Cannula 1.5 05/15/17 19:30 94 Nasal Cannula 1.5 05/15/17 19:30 36.8 80 20 152/94 (113) 94 Room Air 05/15/17 18:20 93 Nasal Cannula 1.5 05/15/17 18:15 88 Room Air 05/15/17 17:50 143/94 (110) 92 Nasal Cannula 1.5 05/15/17 17:00 130/98 (109) 92 Nasal Cannula 1.5 05/15/17 15:30 36.6 80 20 136/90 (105) 93 Nasal Cannula 1.5 05/15/17 15:30 93 Nasal Cannula 1.5 05/15/17 11:35 36.5 80 22 141/93 (109) 94 Nasal Cannula 1.5 05/15/17 11:01 93 Nasal Cannula 1.5 05/15/17 11:00 90 Nasal Cannula 1.0 Physical Exam General Appearance: mild distress Respiratory/Chest: lungs clear Abdomen: normal bowel sounds, non tender Incision Description: Clean, Dry & Intact Extremities: no pedal edema, no calf tenderness Laboratory Results Last 24 Hours Test 05/15/17 13:10 05/16/17 05:34 Sodium Level 143 mmol/L 140 mmol/L Potassium Level 4.2 mmol/L 4.0 mmol/L Chloride Level 106 mmol/L 102 mmol/L Carbon Dioxide Level 30 mmol/L 30 mmol/L Anion Gap 7.0 mmol/L 7.0 mmol/L Blood Urea Nitrogen 15 mg/dl 11 mg/dl Creatinine 0.86 mg/dl 0.76 mg/dl Est Creatinine Clear Calc Drug Dose 82.0 ml/min 92.8 ml/min Estimated GFR () 93.2 108.3 Estimated GFR (Non- 80.4 93.4 BUN/Creatinine Ratio 17.7 15.0 Random Glucose 118 mg/dl 114 mg/dl Calcium Level 8.7 mg/dl 8.6 mg/dl White Blood Count 11.19 K/uL Red Blood Count 3.55 M/uL Hemoglobin 10.2 g/dL Hematocrit 32.6 % Mean Corpuscular Volume 91.8 fL Mean Corpuscular Hemoglobin 28.7 pg Mean Corpuscular Hemoglobin Concent 31.3 g/dl RDW Standard Deviation 45.3 fL RDW Coefficient of Variation 13.5 % Platelet Count 218 K/uL Mean Platelet Volume 10.1 fL Assessment and Plan Post-Op Day#: 3 Continue Routine Care: patient has difficulty with ambulation oxygen saturation is still falling using tri rose
--- NOTE | 2017-05-16 12:13 | Medical Student: [facility] ---
Med Student History & Physical Date & Time of Service: May 16, 2017 at 11:56 Chief Complaint: Fibroid Uterus Primary Care Physician: No Doctor, Assigned History of Present Illness Source: patient Minerva is a 47-year-old female who is post-op day 3 following an abdominal myomectomy done by Dr. Ross on 05/13. She did well post-op but has had increasing problems with obstructive sleep apnea, and she is currently on nasal cannula with an O2 sat of 94% per O2 protocol. Nurse notes state that O2 sat drop to 84-86% overnight. She states that her breathing is better than it was and that she is able to ambulate around the halls and to the bathroom without feeling too short of breath. Her post-op pain is being managed with Percocet, and today she states that it is about 4/10 (improved since yesterday). She is passing gas, has voided without difficulty, and is having only a small amount of lochia. She denies nausea, vomiting, fever, chills, leg pain, chest pain. Regarding the RAMON - her last sleep study was done one year ago, but she states that she has gained some weight since then. She is not currently on CPAP at home. Denies smoking and other use of tobacco. Social History Smoking Status: Never Smoker Smokeless Tobacco Use: No Alcohol Use: occasionally (wine) Drug Use: none Marital Status: Occupational Status: employed Immunizations History of Tetanus Vaccine?: Unknown History of Pneumococcal: Unknown History of Hepatitis B Vaccine: Unknown Allergies Coded Allergies: NO KNOWN DRUG ALLERGIES (Verified Allergy, Unknown, NONE, 05/13/17) Nickel (Verified Allergy, Unknown, RASH WITH INEXPENSIVE JEWELRY, 05/13/17 ) Medications Acetaminophen (Tylenol), 650 MG PO PRN Escitalopram (Lexapro), 10 MG PO NOON Ferrous Sulfate (Kp Ferrous Sulfate), 1 TAB PO DAILY Ibuprofen (Advil), 400 MG PO PRN Loratadine (Claritin), 10 MG PO PRN [Vitamin B12], 1 TAB PO DAILY [Vitamin D], 1 TAB PO DAILY Review of Systems Constitutional: No fever, No chills Respiratory: + shortness of breath, + dyspnea on exertion, No cough Cardiovascular: No chest pain Abdomen: + pain (Surgical incision site), No nausea, No vomiting, No constipation Musculoskeletal: No swelling, No calf pain Genitourinary - Female: No dysuria, No urinary incontinence Integumentary: + problem reported (Lower-abdominal incision) Physical Exam Vital Signs (24 Hours) Date Time Temp Pulse Resp B/P (MAP) Pulse Ox O2 Delivery O2 Flow Rate FiO2 05/16/17 08:20 94 Nasal Cannula 1.5 05/16/17 07:55 37.0 73 18 148/94 (112) 95 Nasal Cannula 1.5 05/16/17 03:45 37.1 80 20 139/85 (103) 92 Room Air 1.5 05/16/17 00:15 37.1 05/16/17 00:00 92 Nasal Cannula 1.5 05/16/17 00:00 37.8 85 18 135/95 (108) 92 Nasal Cannula 1.5 05/15/17 19:30 94 Nasal Cannula 1.5 05/15/17 19:30 36.8 80 20 152/94 (113) 94 Room Air 05/15/17 18:20 93 Nasal Cannula 1.5 05/15/17 18:15 88 Room Air 05/15/17 17:50 143/94 (110) 92 Nasal Cannula 1.5 05/15/17 17:00 130/98 (109) 92 Nasal Cannula 1.5 05/15/17 15:30 36.6 80 20 136/90 (105) 93 Nasal Cannula 1.5 05/15/17 15:30 93 Nasal Cannula 1.5 General Appearance: WD/WN, + mild distress (Nasal cannula) Head: normocephalic, atraumatic Neck: supple, no adenopathy Respiratory/Chest: chest non-tender, lungs clear, + decreased breath sounds ( Bases bilaterally), + pertinent finding (Nasal cannula) Cardiovascular: regular rate, rhythm, no edema Abdomen/GI: normal bowel sounds, soft, + tenderness (4/10 pain post-op), + pertinent finding (Lower abdominal incision, closed with sulemna ) Extremities/Musculoskelatal: normal inspection, no calf tenderness Skin: normal color, warm/dry Diagnostics Laboratory Results Results Past 24 Hours Test 05/15/17 13:10 05/16/17 05:34 Range/Units Sodium Level 143 140 136-145 mmol/L Potassium Level 4.2 4.0 3.5-5.1 mmol/L Chloride Level 106 102 98-107 mmol/L Carbon Dioxide Level 30 30 21-32 mmol/L Anion Gap 7.0 7.0 3-11 mmol/L Blood Urea Nitrogen 15 11 7-18 mg/dl Creatinine 0.86 0.76 0.60-1.20 mg/dl Est Creatinine Clear Calc Drug Dose 82.0 92.8 ml/min Estimated GFR () 93.2 108.3 Estimated GFR (Non- 80.4 93.4 BUN/Creatinine Ratio 17.7 15.0 10-20 Random Glucose 118 114 70-99 mg/dl Calcium Level 8.7 8.6 8.5-10.1 mg/dl White Blood Count 11.19 4.8-10.8 K/uL Red Blood Count 3.55 4.2-5.4 M/uL Hemoglobin 10.2 12.0-16.0 g/dL Hematocrit 32.6 37-47 % Mean Corpuscular Volume 91.8 80-100 fL Mean Corpuscular Hemoglobin 28.7 25-34 pg Mean Corpuscular Hemoglobin Concent 31.3 32-36 g/dl RDW Standard Deviation 45.3 36.4-46.3 fL RDW Coefficient of Variation 13.5 11.5-14.5 % Platelet Count 218 130-400 K/uL Mean Platelet Volume 10.1 7.4-10.4 fL Impression Assessment and Plan Assessment/Plan: This is a 47-year-old female who is post-op day 3 following an abdominal myomectomy done by Dr. Ross and who has had complications with mild hypoxia, both during the night and while awake. DDx includes RAMON, atelectasis, PE, pneumonia, bronchitis. For post-op care: -Pain management with Percocet per Dr. Ross -DVT prophylaxis - ambulation and SCDs -Possible PT/OT consult - will leave this up to surgeon For atelectasis/RAMON/hypoxia: -Continue on O2 per protocol -Continue use of incentive spirometer 5x every hour -Nasal cannula/CPAP at night -Outpatient sleep study upon discharge -CPAP machine for home care -Establish PCP - encourage weight loss For PTSD: -Continue Lexapro, 10 mg Mild leukocytosis: -Monitor WBC counts daily; likely due to steroids intra-operatively given that she is afebrile and surgical wound is clean/dry/non-erythematous Advanced Directives Existing Living Will: No Existing Power of Roll Builder: No
[2017-05-16] MEDS: ESCITALOPRAM OXALATE 10 MG TAB PO SCH (12:14)
--- NOTE | 2017-05-16 18:49 | Progress Note ---
Subjective Date of Service: May 16, 2017. Subjective Pt evaluation today including: conversation w/ patient, physical exam, chart review, lab review, review of inpatient medication list feeling oK no sob walked halls w nursing and fatigued but no sob. 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 Review of Systems all other ROS otherwise negative except for as above Objective Vital Signs Date Time Temp Pulse Resp B/P (MAP) Pulse Ox O2 Delivery O2 Flow Rate FiO2 05/16/17 16:00 94 Nasal Cannula Humidified Oxygen 05/16/17 16:00 36.6 85 16 137/86 (103) 94 Nasal Cannula Humidified Oxygen 05/16/17 15:59 95 Room Air 05/16/17 12:00 76 168/88 (114) 05/16/17 12:00 36.8 76 16 148/101 (117) 96 Nasal Cannula 1.5 05/16/17 08:20 94 Nasal Cannula 1.5 05/16/17 07:55 37.0 73 18 148/94 (112) 95 Nasal Cannula 1.5 05/16/17 03:45 37.1 80 20 139/85 (103) 92 Room Air 1.5 05/16/17 00:15 37.1 05/16/17 00:00 92 Nasal Cannula 1.5 05/16/17 00:00 37.8 85 18 135/95 (108) 92 Nasal Cannula 1.5 05/15/17 19:30 94 Nasal Cannula 1.5 05/15/17 19:30 36.8 80 20 152/94 (113) 94 Room Air Physical Exam General Appearance: no apparent distress Eyes: EOMI ENT: hearing grossly normal Neck: trachea midline Respiratory/Chest: no respiratory distress, no accessory muscle use, + decreased breath sounds (worse base to mid lung. pulse ox 89-91 @ rest on room air then increases to as high as 96 w incentive spirometry use. no r/r/w good effort no accessory muscles) Neurologic/Psychiatric: qualifications examiner II-XII nml as tested, alert, normal mood/affect Skin: normal color, warm/dry Laboratory Results Last 24 Hours Test 05/16/17 05:34 White Blood Count 11.19 K/uL Red Blood Count 3.55 M/uL Hemoglobin 10.2 g/dL Hematocrit 32.6 % Mean Corpuscular Volume 91.8 fL Mean Corpuscular Hemoglobin 28.7 pg Mean Corpuscular Hemoglobin Concent 31.3 g/dl RDW Standard Deviation 45.3 fL RDW Coefficient of Variation 13.5 % Platelet Count 218 K/uL Mean Platelet Volume 10.1 fL Sodium Level 140 mmol/L Potassium Level 4.0 mmol/L Chloride Level 102 mmol/L Carbon Dioxide Level 30 mmol/L Anion Gap 7.0 mmol/L Blood Urea Nitrogen 11 mg/dl Creatinine 0.76 mg/dl Est Creatinine Clear Calc Drug Dose 92.8 ml/min Estimated GFR () 108.3 Estimated GFR (Non- 93.4 BUN/Creatinine Ratio 15.0 Random Glucose 114 mg/dl Calcium Level 8.6 mg/dl Assessment and Plan S/p abdominal myomectomy--POD #3 -Pain management, DVT prophylaxis, and PT/OT as per primary team hypoxia -appearing to be two separate issues: daytime/constant, and overnight likely chronic: -daytime: appearing by far most c/w atelectasis - abdominal surgery/pain w deep breath, O2 requirements nearly vanish w incentive spirometry use and improved w ambulation -continue O2 as needed, but encouraged ambulation and IS use multiple times an hour; anticipate spontaneous resolution of this -nighttime: probably atelectasis and RAMON. for outpt sleep study in near future. applauded exercise and weight loss goals; continue towards these goals Mild leukocytosis, likely secondary to intraoperative steroids -Continue to monitor, no s/s infection Acute blood loss anemia in postop setting--stable -Hgb stable, continue to monitor -Restarted home ferrous sulfate, outpt f/u PTSD -Continue home Lexapro 10 mg PO qd
[2017-05-17] MEDS: IBUPROFEN 600 MG TAB PO PRN ×2 (00:40→09:25)
[2017-05-17] MEDS: OXYCODONE/ACETAMINOPHEN 5-325 TAB PO PRN ×2 (00:40→09:26)
[2017-05-17 06:44] LABS: HEMATOCRIT 33.1 % (37-47); MEAN CELL VOLUME 90.2 fL (80-100); MEAN CORPUSCULAR HEMOGLOBIN 29.2 pg (25-34); MEAN CORPUSCULAR HGB CONC 32.3 g/dl (32-36); MEAN PLATELET VOLUME 10.2 fL (7.4-10.4); PLATELET COUNT 277 K/uL (130-400); RED BLOOD COUNT 3.67 M/uL (4.2-5.4); WHITE BLOOD COUNT 8.86 K/uL (4.8-10.8)
[2017-05-17 07:13] LABS: BUN/CREATININE RATIO 17.8 (10-20); CALCIUM 8.7 mg/dl (8.5-10.1); CREATININE 0.71 mg/dl (0.60-1.20); POTASSIUM 3.6 mmol/L (3.5-5.1)
[2017-05-17 08:25] VITALS: BP 152/90; PULSE 75; TEMP 36.9; O2SAT 96
--- NOTE | 2017-05-17 08:27 | Progress Note ---
Subjective May 17, 2017. Subjective conversation w/ patient Ambulation: ambulating normally Voiding: no voiding problems Passing Gas: Yes Diet Tolerance: Regular Diet Lochia: Small Review of Systems Constitutional: + fever Objective Vital Signs Date Time Temp Pulse Resp B/P (MAP) Pulse Ox O2 Delivery O2 Flow Rate FiO2 05/16/17 20:44 94 Nasal Cannula 0.5 Humidified Oxygen 05/16/17 19:53 94 Room Air 05/16/17 19:05 95 Room Air 05/16/17 18:45 95 Room Air 05/16/17 16:00 94 Nasal Cannula Humidified Oxygen 05/16/17 16:00 36.6 85 16 137/86 (103) 94 Nasal Cannula Humidified Oxygen 05/16/17 15:59 95 Room Air 05/16/17 12:00 76 168/88 (114) 05/16/17 12:00 36.8 76 16 148/101 (117) 96 Nasal Cannula 1.5 Physical Exam General Appearance: WELL-APPEARING Respiratory/Chest: lungs clear Abdomen: normal bowel sounds, non tender Incision Description: Clean, Dry & Intact Extremities: no pedal edema, no calf tenderness Laboratory Results Last 24 Hours Test 05/17/17 06:16 White Blood Count 8.86 K/uL Red Blood Count 3.67 M/uL Hemoglobin 10.7 g/dL Hematocrit 33.1 % Mean Corpuscular Volume 90.2 fL Mean Corpuscular Hemoglobin 29.2 pg Mean Corpuscular Hemoglobin Concent 32.3 g/dl RDW Standard Deviation 44.1 fL RDW Coefficient of Variation 13.4 % Platelet Count 277 K/uL Mean Platelet Volume 10.2 fL Sodium Level 140 mmol/L Potassium Level 3.6 mmol/L Chloride Level 104 mmol/L Carbon Dioxide Level 27 mmol/L Anion Gap 9.0 mmol/L Blood Urea Nitrogen 13 mg/dl Creatinine 0.71 mg/dl Est Creatinine Clear Calc Drug Dose 99.4 ml/min Estimated GFR () 117.6 Estimated GFR (Non- 101.4 BUN/Creatinine Ratio 17.8 Random Glucose 105 mg/dl Calcium Level 8.7 mg/dl Assessment and Plan Post-Op Day#: 4
--- NOTE | 2017-05-17 08:31 | Discharge Instructions ---
Discharge Instructions Date of Service May 17, 2017. Admission Reason for Admission: Fibroid Uterus heavy vaginal bleeding Discharge Discharge Diagnosis / Problem: symptomatic uterine fibroids Discharge Goals Goal(s): Routine recovery after surgery Activity Recommendations Activity Limitations: as noted below ACTIVITY RECOMMENDATIONS: * Gradual return to full activity over next 2-3 weeks. * No heavy lifting over next 2-3 weeks. * Nothing in the vagina (no intercourse, tampons, or douching) for 4 weeks * You may walk up and down steps as necessary. * You may drive a car in 2 weeks. * Hot shower or tub bath daily. SPECIAL CARE INSTRUCTIONS: * Check temperature twice daily for one week. Report any elevation over 100.4 degrees Fahrenheit (38.0 degrees Celsius). * Call your doctor if bleeding becomes heavier than the heaviest part of your period - saturating a sanitary pad within an hour. * If you develop a red, hard, warm swollen lump on your incision or if you develop any separation of or drainage from your incision, notify your doctor. . Instructions / Follow-Up Instructions / Follow-Up ACTIVITY RECOMMENDATIONS: * Gradual return to full activity over next 2-3 weeks. * No heavy lifting over next 2-3 weeks. * Nothing in the vagina (no intercourse, tampons, or douching) for 4 weeks * You may walk up and down steps as necessary. * You may drive a car in 2 weeks. * Hot shower or tub bath daily. SPECIAL CARE INSTRUCTIONS: * Check temperature twice daily for one week. Report any elevation over 100.4 degrees Fahrenheit (38.0 degrees Celsius). * Call your doctor if bleeding becomes heavier than the heaviest part of your period - saturating a sanitary pad within an hour. * If you develop a red, hard, warm swollen lump on your incision or if you develop any separation of or drainage from your incision, notify your doctor. Current Hospital Diet Patient's current hospital diet: Regular Diet Discharge Diet Recommended Diet: Regular Diet Procedures Procedures Performed: Abdominal Myomectomy Pending Studies Studies pending at discharge: no Medical Emergencies . Who to Call and When: Medical Emergencies: If at any time you feel your situation is an emergency, please call 911 immediately. . Non-Emergent Contact Non-Emergency issues call your: Licensed Guide Call Non-Emergent contact if: temperature is above 100.5 . . "Provider Documentation" section prepared by Teofilo Ross. . VTE Core Measure Inpt VTE Proph given/why not?: Treatment not indicated
[2017-05-17] MEDS: FERROUS SULFATE 325 MG TAB PO SCH (08:32)
--- NOTE | 2017-05-17 08:44 | Medical Student: [facility] ---
Med Student Progress Note Date of Service May 17, 2017. Subjective Pt evaluation today including: conversation w/ patient Voiding: no voiding problems, no incontinence Minerva is a 47-year-old female who is post-op day 4 following an abdominal myomectomy done by Dr. Ross on 05/13. She did well post-op but had problems with hypoxia following surgery. At first she was on a nasal cannula 24/01 but is now able to maintain O2 sat of 95% on room air while awake. Still uses the nasal cannula at night. Has used incentive spirometry as instructed. She states that her breathing is much better, back to her baseline. Her post-op pain is being managed with Percocet, and today she states that it is about 3/10 ( improved since yesterday). She is passing gas, has voided without difficulty, and is having only a small amount of lochia. Surgical wound is healing well according to Dr. Ross's note. She denies nausea, vomiting, fever, chills, leg pain, chest pain. Patient is being discharged home early this afternoon. Review of Systems Constitutional: No fever, No chills Respiratory: + problem reported (Mild hypoxia at night - still on nasal cannula ), No cough, No shortness of breath, No dyspnea on exertion Cardiac: No chest pain, No edema, No claudication Abdomen: + pain (4/10), No nausea, No vomiting Neurologic: No weakness Skin: + see HPI All Other Systems: Reviewed and Negative Objective Vital Signs Date Time Temp Pulse Resp B/P (MAP) Pulse Ox O2 Delivery O2 Flow Rate FiO2 05/16/17 20:44 94 Nasal Cannula 0.5 Humidified Oxygen 05/16/17 19:53 94 Room Air 05/16/17 19:05 95 Room Air 05/16/17 18:45 95 Room Air 05/16/17 16:00 94 Nasal Cannula Humidified Oxygen 05/16/17 16:00 36.6 85 16 137/86 (103) 94 Nasal Cannula Humidified Oxygen 05/16/17 15:59 95 Room Air 05/16/17 12:00 76 168/88 (114) 05/16/17 12:00 36.8 76 16 148/101 (117) 96 Nasal Cannula 1.5 Physical Exam General Appearance: WD/WN, no apparent distress Neck: supple, no adenopathy Respiratory/Chest: chest non-tender, lungs clear, normal breath sounds Cardiovascular: regular rate, rhythm, no edema Abdomen: normal bowel sounds, soft, + tenderness Extremities: no pedal edema, no calf tenderness Neurologic/Psychiatric: alert, normal mood/affect, oriented x 3 Skin: normal color, warm/dry Laboratory Results Last 24 Hours Test 05/17/17 06:16 White Blood Count 8.86 K/uL Red Blood Count 3.67 M/uL Hemoglobin 10.7 g/dL Hematocrit 33.1 % Mean Corpuscular Volume 90.2 fL Mean Corpuscular Hemoglobin 29.2 pg Mean Corpuscular Hemoglobin Concent 32.3 g/dl RDW Standard Deviation 44.1 fL RDW Coefficient of Variation 13.4 % Platelet Count 277 K/uL Mean Platelet Volume 10.2 fL Sodium Level 140 mmol/L Potassium Level 3.6 mmol/L Chloride Level 104 mmol/L Carbon Dioxide Level 27 mmol/L Anion Gap 9.0 mmol/L Blood Urea Nitrogen 13 mg/dl Creatinine 0.71 mg/dl Est Creatinine Clear Calc Drug Dose 99.4 ml/min Estimated GFR () 117.6 Estimated GFR (Non- 101.4 BUN/Creatinine Ratio 17.8 Random Glucose 105 mg/dl Calcium Level 8.7 mg/dl Assessment and Plan Assessment and Plan: Assessment/Plan: This is a 47-year-old female who is post-op day 4 following an abdominal myomectomy done by Dr. Ross and who has had complications with mild hypoxia, both during the night and while awake. DDx includes RAMON, post-surgical atelectasis, PE, pneumonia, bronchitis. For post-op care: -Pain management with Percocet per Dr. Ross - discharged home with script for this -DVT prophylaxis - ambulation For atelectasis/RAMON/hypoxia: -Atelectasis and daytime hypoxia resolved - patient is being discharged home today -Outpatient sleep study upon discharge -CPAP machine for home care -Establish PCP - recommendations were given upon patient's request (Dr. Pinky Sterling and Dr. Jessa Ko) For PTSD: -Continue Lexapro, 10 mg, outpatient Mild leukocytosis: -Has resolved based on labs done early this morning Discharge planning: home
--- NOTE | 2017-05-17 08:49 | DISCHARGE SUMMARY ---
Mrs. Recinos was admitted for abdominal myomectomy. She had requested preservation of her uterus and tubes and her preadmission ultrasound had shown 3 dominant fibroids, 2 of which were in the 5 cm range. The day of admission she was given prophylactic antibiotics, taken to the OR where it was discovered that she had multiple fibroids. Three dominant ones were removed along with 11 others. One a medium size and then about 10 small ones. We had eventually made 3 uterine incisions. Blood loss was average. Postoperatively, it required a day or so for bowel sounds to come back. She did have trouble with ambulating postoperatively and she also had difficulty with falling oxygen sats. On about the second postoperative day, I called the hospitalist in consult to evaluate her for sleep apnea because her sats were falling below 90 at night. Eventually, we were able to encourage her and get her to ambulate more and she was not able to ambulate on her own or get in and out of the bed on her own until the day of discharge. Her preoperative hemoglobin was 12.9, hematocrit 38.9. Postoperatively hemoglobin was 10.7, hematocrit 33.1. At the time of discharge, she was ambulating well. Her pain was controlled with a combination of Percocet and Motrin and she was told to call if she had a temperature over 100, call if she had any heavy bleeding and she was going to return to the office in approximately a week for removal of suleman.
[2017-05-17 09:34] VITALS: BP 152/90; PULSE 75; TEMP 36.9; O2SAT 96
[2017-05-17] MEDS: ESCITALOPRAM OXALATE 10 MG TAB PO SCH (12:12)
== END 2017-05-17 12:20 | disposition home or self-care (01) | DRG 742 ==
LOC: C.ACU 09:08 → C.MS4N 15:03 → ENRESERV 15:54 → C.OBG 05-15 14:43
PROVIDERS: ADMIT Obstetrics & Gynecology; ATTEND Obstetrics & Gynecology
PROC: 0UB90ZZ Excision of Uterus, Open Approach (ICD-10-PCS; principal; 2017-05-13 11:00)
DX: D25.9 Leiomyoma of uterus, unspecified (principal); D62 Acute posthemorrhagic anemia; N92.0 Excessive and frequent menstruation with regular cycle; R09.02 Hypoxemia; R26.2 Difficulty in walking, not elsewhere classified; D72.829 Elevated white blood cell count, unspecified; T38.0X5A Adverse effect of glucocorticoids and synthetic analogues, initial encounter; G47.33 Obstructive sleep apnea (adult) (pediatric); F43.10 Post-traumatic stress disorder, unspecified; F41.9 Anxiety disorder, unspecified; F32.9 Major depressive disorder, single episode, unspecified; E66.9 Obesity, unspecified; Z68.32 Body mass index [BMI] 32.0-32.9, adult; Z79.899 Other long term (current) drug therapy; Z91.09 Other allergy status, other than to drugs and biological substances